=== PATIENT | male | born 1995 | race Caucasian/White ===

== ENCOUNTER 2016-07-14 23:58 | Emergency (ER) | payer OTHER ==
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
[~2016-07-14 23:58] MED LIST: ALBUTEROL17 GM INH; NO MEDICATIONS; PREDNISONE10 MG/DOSE PO; ZITHROMAX1 G/PKT PO; ZOLOFT PO
== END 2016-07-15 03:00 | disposition home or self-care (01) ==
LOC: CED 23:58
DX: S20.212A Contusion of left front wall of thorax, initial encounter (principal); M54.9 Dorsalgia, unspecified; J45.909 Unspecified asthma, uncomplicated; F32.9 Major depressive disorder, single episode, unspecified; F17.210 Nicotine dependence, cigarettes, uncomplicated; W52.XXXA Crushed, pushed or stepped on by crowd or human stampede, initial encounter; Y92.410 Unspecified street and highway as the place of occurrence of the external cause
CPT/HCPCS: 71010; 99283